=== PATIENT | male | born 1990 | race Caucasian/White ===

== ENCOUNTER 2017-07-12 07:33 | Day surgery (SDC) | payer BC ==
--- NOTE | 2017-07-12 09:17 | CP.SDSHP ---
Same Day Surgery H & P - History Proposed Procedure: EGD Pre-Op Diagnosis: abdominal pain - Allergies Allergies: Allergies No Known Allergies Allergy (Verified 07/06/15 05:58) - Physical Exam General Appearance: NAD Vital Signs: Vital Signs 07/12/17 08:08 Temperature 97 F L Pulse Rate 68 Respiratory 19 Rate Blood Pressure 107/64 O2 Sat by Pulse 97 Oximetry Mental Status: Alert & Oriented x3 Neuro: WNL Heart: WNL Lungs: WNL GI: WNL - {Optional Preform as Required} Abdomen: WNL - Impression Pt. Evaluated Today:Candidate for Anesthesia & Procedure: Yes - Date & Time Date: 07/12/17 Time: : Short Stay Discharge - Short Stay Discharge Admitting Diagnosis/Reason for Visit: EPIGASTRIC PAIN Disposition: HOME/ ROUTINE
[2017-07-12] MEDS ORDERED: Propofol 10 mg/ml Inj (20 ML) ONE ×2 (09:22→09:26)
[2017-07-12] MEDS ORDERED: Lactated Ringer's 1,000 ML IV ONE (09:25)
[2017-07-12 09:49] VITALS: TEMP 97.5
[2017-07-12 10:29] VITALS: O2SAT 100
[2017-07-12 10:30] VITALS: BP 109/68; PULSE 59; RESP 17
== END 2017-07-12 10:45 | disposition home or self-care (01) ==
LOC: C.ENDO 07:33
PROVIDERS: ATTEND Internal Medicine Gastroenterology
DX: K29.70 Gastritis, unspecified, without bleeding (principal)
CPT/HCPCS: 43239; 88305; J2001; J2704; J7120